=== PATIENT | female | born 1970 | race Hispanic/Latino ===

== ENCOUNTER 2018-12-19 10:55 | Outpatient (CLI) | payer BC ==
[2018-12-19] MEDS ORDERED: KINEVAC IV ONE ×2 (12:13→13:12)
[2018-12-19] MEDS ORDERED: WATER FOR INJ Sterile (PF) 10 ML ONE (12:13)
--- NOTE | 2018-12-19 14:01 | Nuclear Medicine Report ---
Hepatobiliary scan with cholecystokinin INDICATION: Right upper quadrant pain TECHNIQUE: The patient was administered 5 mCi of technetium 99 Choletec and following delayed imaging over the right upper quadrant was subsequently administered 1.4 mcg of Kinevac for CCK stimulation FINDINGS: There is prompt uptake of radionuclide by the liver. Common duct, gallbladder and duodenal activity is seen promptly. Following administration of CCK the gallbladder ejection fraction is only calculated to be 21% which is below the normal range of 35% or above. The CCK stimulation did reprodu ce the patient's symptoms. IMPRESSION: Moderately depressed ejection fraction with reproducible symptoms. Signer Name: Allen Deleon MD Signed: 12/19/2018 1:29 PM Workstation Name: [id number]
== END 2018-12-19 10:56 | disposition home or self-care (01) ==
LOC: NM 10:55
DX: R10.9 Unspecified abdominal pain (principal)
CPT/HCPCS: 78227; A9537; J2805

== ENCOUNTER 2020-07-05 09:57 | Outpatient (CLI) | payer BC ==
[2020-07-05 10:56] LABS: Blood Urea Nitrogen 10 mg/dL (7-17)
--- NOTE | 2020-07-05 12:13 | Cat Scan Report ---
CTA NECK WITH CONTRAST 07/05/2020 INDICATION / CLINICAL INFORMATION: Abdominal aortic ectasia. Blockage.. COMPARISON: None. TECHNIQUE: Routine CTA of the neck is performed. 3-D/MIP reformats were postprocessed. Percentage st enosis is determined by direct quantitative measurements of diseased internal carotid artery diameter compared with normal distal internal carotid artery reference segments or by criteria similar to EDDIE CET where applicable. All CT scans at this location are performed using CT dose reduction for ALARA b y means of automated exposure control. CONTRAST: 100 ml of Omnipaque 350 FINDINGS: Carotid bifurcations: There is no evidence of carotid bifurcation stenosis. Carotid arteries: No significant abnormality. Cervical vertebral arteries: No significant abnormality. Aortic arch: No significant abnormality. None. IMPRESSION: No significant abnormality. Signer Name: Abner Garcia MD Signed: 07/05/2020 12:08 PM Workstation Name: [id number]
== END 2020-07-05 09:58 | disposition home or self-care (01) ==
LOC: CT 09:57
PROVIDERS: ATTEND Surgery Vascular Surgery
DX: I65.23 Occlusion and stenosis of bilateral carotid arteries (principal); I77.811 Abdominal aortic ectasia; I10 Essential (primary) hypertension; E66.9 Obesity, unspecified; K21.9 Gastro-esophageal reflux disease without esophagitis; Z72.0 Tobacco use
CPT/HCPCS: 36415; 70498; 82565; 84520; Q9967